=== PATIENT | male | born 1950 | race Caucasian/White ===

== ENCOUNTER → 2017-10-06 | Outpatient (CLI) | payer OTHER | LOC: FIMAGING 13:37 | PROVIDERS: ATTEND Orthopaedic Surgery | DX: M17.12 Unilateral primary osteoarthritis, left knee (principal) ==

== ENCOUNTER 2017-10-10 06:41 | Inpatient (IN) | payer OTHER ==
[~2017-10-10 06:41] MED LIST: ROPIVACAINE 0.2% 80 MG, EPINEPHrine 0.2 MG, KETOROLAC TROMETHAMINE 30 MG in SYRINGE 0 ML IU ONE; TRANEXAMIC ACID 3,000 MG in NS 50 ML IRR ONE
--- NOTE | 2017-10-10 07:07 | PDHPUP ---
History & Physical Update H&P update statement: This history and physical update is based on an assessment of the patient which was completed after admission or registration (within 24 hours), but prior to the surgery/procedure. H&P update: H&P reviewed & patient examined, no change in patient's condition since H&P completed
[2017-10-10] MEDS ORDERED: TRANEXAMIC ACID 3,000 MG/50 ML BAG IRR ONE (07:12)
[2017-10-10] MEDS ORDERED: VANCOMYCIN 1 GM VIAL ONE (07:12)
[2017-10-10] MEDS ORDERED: ceFAZolin 2 GM/SWFI 2 GM/20 ML SYR IVP ONE (07:19)
[2017-10-10] MEDS ORDERED: ACETAMINOPHEN 325 MG TAB PO ONE (07:19)
[2017-10-10] MEDS ORDERED: DEXAMETHASONE 4 MG/ML VIAL IVP ONE (07:19)
[2017-10-10] MEDS ORDERED: FAMOTIDINE 20 MG TAB PO ONE (07:19)
[2017-10-10] MEDS ORDERED: LIDOCAINE 1% 2 ML INJ ID PRN (07:20)
[2017-10-10] MEDS ORDERED: LR 1,000 ML IV ONE (07:20)
[2017-10-10] MEDS ORDERED: MIDAZOLAM 2 MG/2 ML VIAL IVP ONE (08:22)
[2017-10-10] MEDS ORDERED: MIDAZOLAM 2 MG/2 ML VIAL ONE (09:01)
[2017-10-10] MEDS ORDERED: PROPOFOL/EMULSION 500 MG/50 ML BOTTLE IV ONE (09:01)
--- NOTE | 2017-10-10 09:35 | PDANEPAE ---
ANE Past Medical History - Cardiovascular History Hx Hypertension: Yes Hx Arrhythmias: No Hx Chest Pain: No Hx Coronary Artery / Peripheral Vascular Disease: No Hx CHF / Valvular Disease: No Hx Palpitations: No - Pulmonary History Hx COPD: No Hx Asthma/Reactive Airway Disease: No Hx Recent Upper Respiratory Infection: No Hx Oxygen in Use at Home: No Hx Sleep Apnea: No Sleep Apnea Screening Result - Last Documented: Positive - Neurologic History Hx Cerebrovascular Accident: No Hx Seizures: No Hx Dementia: No - Endocrine History Hx Diabetes: No - Renal History Hx Renal Disorders: No - Liver History Hx Hepatic Disorders: No - Neurological & Psychiatric Hx Hx Neurological and Psychiatric Disorders: No - Cancer History Hx Cancer: No - Congenital Disorder History Hx Congenital Disorders: No - GI History Hx Gastrointestinal Disorders: No - Other Health History Other Health History: none - Chronic Pain History Chronic Pain: No - Surgical History Prior Surgeries: 1969' medial meniscus removal ANE Review of Systems Review of Systems: - Exercise capacity METS (RN): 4 METS ANE Patient History - Allergies Allergies/Adverse Reactions: latex Allergy (Verified 09/10/17 13:45) Sulfa (Sulfonamide Antibiotics) Allergy (Verified 09/10/17 13:45) bee sting Allergy (Uncoded 09/10/17 13:45) - Home Medications Home Medications: Aspirin [Aspirin 81mg (*)] 81 mg PO HS 09/10/17 [Last Taken 10/03/17] C/E/Zn/Cu/OM3/DHA/EPA/LUT/ZEAX [Preservision Areds 2 Softgel] 1 each PO BID [Last Taken 10/03/17] EPINEPHrine [Epipen 0.3 MG] 0.3 mg IM ONCE PRN 09/10/17 [Last Taken 3 Years Ago ~10/10/14] Glucosamine/Chondroitin [Glucosamine/Chondroitin (*)] 1 each PO DAILY 09/10/17 [ Last Taken 10/03/17] Herbals/Supplements -Info Only 1 ea PO DAILY 09/10/17 [Last Taken 10/03/17] Ibuprofen [Motrin (*)] 200 mg PO DAILY PRN 09/10/17 [Last Taken 10/03/17] Multivitamins [Multivitamin (*)] 1 each PO DAILY 09/10/17 [Last Taken 10/03/17] NIFEdipine ER [Adalat CC 60 mg (*)] 60 mg PO DAILY 09/10/17 [Last Taken 10/10/17 ] Marion-3 Fatty Acids [Fish Oil 1000 mg (*)] 1,000 mg PO DAILY 09/10/17 [Last Taken 10/03/17] Pravastatin Sodium 20 mg PO HS 09/10/17 [Last Taken 10/09/17] - NPO status NPO Since - Liquids (Date): 10/10/17 NPO Since - Liquids (Time): 05:30 NPO Since - Solids (Date): 10/09/17 NPO Since - Solids (Time): 18:30 - Smoking Hx Smoking Status: Never smoked - Family Anes Hx Family Hx Anesthesia Complications: none ANE Labs/Vital Signs - Vital Signs Blood Pressure: 143/81 Heart Rate: 53 Respiratory Rate: 15 O2 Sat (%): 94 Height: 180.34 cm Weight: 68.039 kg ANE Physical Exam - Airway Neck exam: FROM, decreased ROM Mallampati Score: Class 2 Mouth exam: normal dental/mouth exam - Pulmonary Pulmonary: no respiratory distress, no rales or rhonchi - Cardiovascular Cardiovascular: no murmur, rub, or gallop - ASA Status ASA Status: II (latex allergy noted) ANE Anesthesia Plan Anesthesia Plan: spinal Regional Anesthesia: adductor canal FNB
[2017-10-10] MEDS ORDERED: NALOXONE HCL 0.4 MG/ML INJ IVP PRN (09:49)
[2017-10-10] MEDS ORDERED: ONDANSETRON 4 MG/2 ML VIAL IVP PRN ×2 (09:49→10:56)
--- NOTE | 2017-10-10 09:52 | POSTANESTH ---
Post Anesthetic Evaluation Respiratory Status: Normal, Stable Level of Consciousness/Mental Status: Mildly Sleepy, Arousable Pain Control: Adequate, Prn Tx Ordered Nausea/Vomiting Control: Adequate, Prn Tx Ordered Complications Possibly Related to Anesthesia: None Noted (Pt to receive Adductor Canal block in pacu to manage post op pain)
[2017-10-10] MEDS ORDERED: ONDANSETRON DISINTEGRATING 4 MG TAB PO PRN (10:56)
[2017-10-10] MEDS ORDERED: METOCLOPRAMIDE 10 MG/2 ML VIAL IVP PRN (10:56)
[2017-10-10] MEDS ORDERED: PROMETHAZINE HCL 25 MG SUPPR PR PRN (10:56)
[2017-10-10] MEDS ORDERED: PROMETHAZINE HCL 25 MG/ML INJ IVP PRN (10:56)
[2017-10-10] MEDS ORDERED: diphenhydrAMINE 25 MG CAP PO PRN (10:56)
[2017-10-10] MEDS ORDERED: TEMAZEPAM 15 MG CAP PO PRN (10:56)
[2017-10-10] MEDS ORDERED: CYCLOBENZAPRINE 10 MG TAB PO PRN (10:56)
[2017-10-10] MEDS ORDERED: DIPHENOXYLATE/ATROPINE LOMOTIL 1 TAB PO PRN (10:56)
[2017-10-10] MEDS ORDERED: LACTULOSE 20 GM/30 ML UDCUP PO PRN (10:56)
[2017-10-10] MEDS ORDERED: BISACODYL 10 MG SUPP PR PRN (10:56)
[2017-10-10] MEDS ORDERED: POLYETHYLENE GLYCOL 3350 17 GM PKT PO PRN (10:56)
[2017-10-10] MEDS ORDERED: MAGNESIUM HYDROXIDE 30 ML UDCUP PO PRN (10:56)
--- NOTE | 2017-10-10 10:56 | POSTOPPROG ---
Post Op Note Date of Operation: 10/10/17 Surgeon: Kye Byers Pumper Gauger: pablo byers Anesthesiologist: dr. garay Anesthesia: Spinal, Other (Specify) (adductor canal block) Pre-op Diagnosis: left knee OA Post-op Diagnosis: same Indication: left knee pain due to OA that failed conservative measures Procedure: L TKA Findings: severe knee OA Inf/Abcess present in the surg proc area at time of surgery?: No EBL: 50-100
[2017-10-10] MEDS ORDERED: LR 1,000 ML IV SCH (11:00)
[2017-10-10 11:36] VITALS: RESP 16
[2017-10-10] MEDS: ACETAMINOPHEN 325 MG TAB PO SCH ×2 (12:15→18:05)
[2017-10-10] MEDS ORDERED: ceFAZolin 2 GM/DEXTROSE 100 ML IV SCH (14:00)
[2017-10-10] MEDS: ceFAZolin 2 GM/SWFI 2 GM/20 ML SYR IVP SCH ×2 (16:26→21:20)
[2017-10-10] MEDS ORDERED: PRAVASTATIN SODIUM 20 MG TAB PO SCH (21:00)
[2017-10-10] MEDS ORDERED: ASPIRIN 325 MG TAB PO SCH (21:00)
[2017-10-10] MEDS: ASPIRIN EC 81 MG TAB PO SCH (21:20)
[2017-10-10] MEDS: SENNOSIDES/DOCUSATE SODIUM TAB PO SCH (21:20)
[2017-10-10] MEDS: FAMOTIDINE 20 MG TAB PO SCH (21:20)
[2017-10-10] MEDS: oxyCODONE IR 5 MG TAB PO PRN (21:35)
[2017-10-11] MEDS: ACETAMINOPHEN 325 MG TAB PO SCH ×2 (01:23→05:07)
[2017-10-11 05:18] LABS: HEMATOCRIT 33.9 % (40.0-51.0); HEMOGLOBIN 11.5 g/dL (13.7-17.5)
[2017-10-11 08:22] VITALS: PULSE 54; TEMP 97.9; O2SAT 100
[2017-10-11] MEDS: ASPIRIN EC 81 MG TAB PO SCH (08:23)
[2017-10-11] MEDS: SENNOSIDES/DOCUSATE SODIUM TAB PO SCH (08:23)
[2017-10-11] MEDS: FAMOTIDINE 20 MG TAB PO SCH (08:23)
[2017-10-11 08:24] VITALS: BP 154/87
[2017-10-11] MEDS ORDERED: NIFEdipine ER 60 MG TAB PO SCH (09:00)
[2017-10-11] MEDS: oxyCODONE IR 5 MG TAB PO PRN (09:19)
--- NOTE | 2017-10-11 09:19 | SOAPPROG ---
SHARON Progress Note Assessment/Plan: Assessment: Daniel is doing well today s/p L TKA 1) pain is well controlled on oral pain meds 2) VTE ppx: recommend ASA 81mg BID 3) d/c planning: d/c to home pending release from PT 4) anemia: level expected initially postop Plan: 10/11/17 09:19 Objective: Vital Signs Temp Pulse Resp BP Pulse Ox 36.6 C 54 L 16 154/87 H 100 10/11/17 08:00 10/11/17 08:00 10/11/17 08:00 10/11/17 08:23 10/11/17 08:00 Laboratory Results 10/11/17 04:45 10/10/17 10/11/17 10/12/17 05:59 05:59 05:59 Intake Total 3325 Output Total 1000 Balance 2325 ICD10 Worksheet Patient Problems: Problems Problem Status Onset Primary localized osteoarthritis of left knee Acute
--- NOTE | 2017-10-11 09:52 | ASDISCHSUM ---
Discharge Information Plan Status:Home with No Needs Medically Cleared to Leave:10/10/2017 Discharge Date:10/10/2017 CM D/C Disposition:Home, Routine, Self-Care ADT D/C Disposition:Home, Routine, Self-Care Projected Discharge Date:10/10/2017 Transportation at D/C:Family Discharge Delay Reason: Follow-Up Date:10/10/2017 Discharge Slot: Final Diagnosis: Placement Information Patient Contact Information Contact Name:RICK Relationship: Address:[address] City:[place] Alternate Phone: [facility]/Zip Code:[place] [address] Email: Financial Information Financial Class: Primary Plan Desc:MEDICARE INPATIENT Primary Plan Number:[id number] Secondary Plan Desc:[facility] Secondary Plan Number:[id number] Assessment Information Case Management Discharge Plan Note Case Management Discharge Discharge Order Complete? Answers: Yes Patient to Obtain Answers: via Family Medications Transportation Arranged Answers: Family/Friends Discharge Comments Notes: Pt s/p L TKA. PT/OT cleared. Pt discharging home today with his . No CM needs identified. Date Signed: 10/11/2017 09:52 AM Electronically Signed By:CARLTON Frazier Intervention Information
--- NOTE | 2017-10-13 17:55 | GOP ---
[f rep st] OPERATIVE REPORT DATE OF OPERATION: 10/10/2017 SURGEON: Johan Kelly MD SHANK TURNER: FARHANA Tilley ANESTHESIA: Spinal. PREOPERATIVE DIAGNOSIS: Left knee osteoarthritis. POSTOPERATIVE DIAGNOSIS: Left knee osteoarthritis. PROCEDURE PERFORMED: Left total knee arthroplasty with computer navigation and robotic assist. FINDINGS: INDICATIONS: This is a 67-year-old man with severe and progressive pain and deformity of the left knee unresponsive to conservative care. Risks and benefits of the surgical intervention were explained in detail. DESCRIPTION OF PROCEDURE: The patient was brought to the operative room and placed on the table in the supine position. Spinal anesthesia was induced without difficulty. A pneumatic tourniquet was applied about the left proximal thigh, and the leg was prepped and draped in a sterile fashion. The leg sheppard was applied. After exsanguination by elevation the tourniquet was inflated to 250 mm of mercury. Incision was made anterior medial from the tibial tuberosity to a point 2 cm proximal to the superior pole of the patella. Medial parapatellar arthrotomy was carried out from the superior pole of the patella and posteriorly in line with the fibers of the Type II VMO. The medial collateral ligament was elevated and the infrapatellar fat pad was resected. The patella was everted and the articular surface was excised. A 38 mm patellar button was placed. Attention was turned first to the distal aspect of the left femur. At 3 cm proximal to the medial rise of the femur, 2 percutaneous half pins were placed for fixation of the femoral array. In a similar fashion, 2 pins were placed anteromedial on the tibia for fixation of the tibial array. External land marking and registration of the hip center was performed without difficulty. Internal femoral and tibial registration was carried out without difficulty and the femoral and tibial checkpoints were placed and verified for accuracy. Attention was turned to the femur. The foot print for the size 6 femoral component was cut with the saw using the [employer] robotic system and verified for accuracy against the CT based plan. In a similar fashion, saw was used to cut the footprint for the size 7 tibial component using the [employer] system and verified for accuracy against the CT based plan. The tibial articular surface was excised without difficulty, followed by the intercondylar box cut. The knee was extended and the remnants of the medial and lateral meniscus were excised. The posterior capsule was injected with ropivacaine, epinephrine and Toradol. A size 7 MIS mini-keel tibial tray was positioned. Trial reduction was then carried out. There was excellent range of motion, alignment, and stability using the 9 mm polyethylene. All trials were then removed. The joint was thoroughly irrigated and carefully dried. The pressfit components were implanted . The permanent 9 mm polyethylene was placed without difficulty. The tourniquet was deflated and all bleeders were coagulated. The wound was thoroughly irrigated and closed using interrupted sutures of 2-0 Vicryl for the joint capsule. The subcu was closed with 3-0 Vicryl and the skin with 4-0 Monocryl. Dermabond and Steri-Strips were applied followed by a compressive dressing. The patient was then moved from the operating room to the recovery room in good condition, having tolerated the procedure well. /[id number]/MODL MTDD
== END 2017-10-11 11:56 | disposition home or self-care (01) | DRG 470 ==
LOC: F3N 06:41
PROVIDERS: ADMIT Orthopaedic Surgery; ATTEND Orthopaedic Surgery
PROC: 8E0Y0CZ Robotic Assisted Procedure of Lower Extremity, Open Approach (ICD-10-PCS; principal; 2017-10-10 09:15)
PROC: 0SRD0JZ Replacement of Left Knee Joint with Synthetic Substitute, Open Approach (ICD-10-PCS; principal; 2017-10-10 09:15)
PROC: 8E0YXBZ Computer Assisted Procedure of Lower Extremity (ICD-10-PCS; principal; 2017-10-10 09:15)
DX: M17.12 Unilateral primary osteoarthritis, left knee (principal); I10 Essential (primary) hypertension
CPT/HCPCS: 97116-GP; 97161-GP; 97165-GO; G8978-GP-CJ; G8979-GP-CI; G8980-GP-CI; G8987-GO-CI; G8988-GO-CI; G8989-GO-CI; J0171; J0690; J1100; J1885; J2250; J2704; J2795; J3370